=== PATIENT | male | born 1990 | race Caucasian/White ===

== ENCOUNTER 2022-06-06 09:14 | Day surgery (SDC) | payer BC ==
[2022-06-06] VITALS (7 sets, daily range): BP systolic 101–136; BP diastolic 60–89
[~2022-06-06] VITALS: Ht 177.8 cm; Wt 100.0 kg
[~2022-06-06 09:14] MED LIST: VILA40TA2 PO
[2022-06-06] MEDS ORDERED: LACTATED RINGERS 1,000 ML IV STA (09:18)
[2022-06-06] MEDS ORDERED: LACTATED RINGERS 1,000 ML IV ONE (09:33)
--- NOTE | 2022-06-06 09:42 | Progress Note-Pre Operative ---
Pre-Operative Progress Note Date of Available H&P: May 08, 2021 Date H&P Reviewed: Jun 06, 2022 Time H&P Reviewed: 09:40 Pre-Operative Diagnosis: Chronic diarrhea, family history of colon cancer VIANCA SYED DO Jun 06, 2022 09:42
[2022-06-06] MEDS ORDERED: MIDAZOLAM 2 MG/2 ML (VERSED) VIAL ONE (10:00)
[2022-06-06] MEDS ORDERED: PROPOFOL INJECTION 50 ML IV ONE (10:00)
--- NOTE | 2022-06-06 10:28 | Discharge Inst-Simple/Standard ---
Discharge Inst-Standard Patient Instructions/Follow Up Plan of Care/Instructions/FU: Please follow-up with Dr. Arevalo in outpatient clinic in 2 weeks. Activity as Tolerated: Yes Discharge Diet: Regular Diet VIANCA AREVALO DO Jun 06, 2022 10:28
--- NOTE | 2022-06-06 10:35 | Anesthesia-General Post-Op ---
MAC Patient Condition Mental Status/LOC: Same as Preop Cardiovascular: Satisfactory Nausea/Vomiting: Absent Respiratory: Satisfactory Pain: Controlled Complications: Absent Post Op Complications Complications None Follow Up Care/Instructions Patient Instructions None needed. Anesthesiology Discharge Order Discharge Order Patient is doing well, no complaints, stable vital signs, no apparent adverse anesthesia problems. No complications reported per nursing. BONI MUNOZ CRNA Jun 06, 2022 10:35
--- NOTE | 2022-06-06 19:56 | OPERATIVE REPORT ---
DATE OF SERVICE: 06/06/2022 PREOPERATIVE DIAGNOSES: Family history of colon cancer, chronic diarrhea. POSTOPERATIVE DIAGNOSIS: Normal colon. PROCEDURE: Colonoscopy with random cold biopsies. SURGEON: Vianca Arevalo DO ANESTHESIA: Per DIRECTOR OF MARKETING OPERATIONS. ESTIMATED BLOOD LOSS: None. COMPLICATIONS: None. INDICATIONS: The patient is a 31-year-old male with family history of colon cancer and also some chronic diarrhea. He understands risks and benefits of the procedure and wished to proceed. Consent was signed and in the chart. DESCRIPTION OF PROCEDURE: The patient taken to endoscopy suite, placed in left lateral position. A timeout was performed. Digital rectal exam was performed. No palpable polyps, masses or ulcerations. Scope was inserted into the rectum and all the way to cecum with no difficulty. Prep was adequate. Scope was slowly retracted back. No polyps, masses, ulcerations within the cecum, ascending, transverse, descending and sigmoid colon. Scope was being retracted. Random cold biopsies were obtained. Once in the rectum, scope was retroflexed noting no other pathology. Scope was returned to its normal position and slowly withdrawn to completely removed. The patient tolerated the procedure well without complications, taken to recovery room in stable condition. RECOMMENDATIONS: The patient will need repeat colonoscopy in 5 years, any issues before that be seen at that time. The patient will follow up in 2 weeks. Discussed pathology results. Job ID: [id number] DocumentID: [id number] Dictated Date: 06/06/2022 10:29:06 Manager Adult Date: 06/06/2022 19:53:00 Dictated By: VIANCA AREVALO DO
== END 2022-06-06 11:17 | disposition home or self-care (01) ==
LOC: ENDO 09:14
PROVIDERS: ATTEND Surgery
DX: K52.9 Noninfective gastroenteritis and colitis, unspecified (principal); Z80.0 Family history of malignant neoplasm of digestive organs
CPT/HCPCS: 88305